=== PATIENT | female | born 1985 | race Two or more races ===

== ENCOUNTER 2022-09-03 13:45 | Emergency (ER) | payer OTHER ==
[~2022-09-03] VITALS: Ht 154.9 cm; Wt 79.5 kg
[2022-09-03] MEDS ORDERED: ONDANSETRON ODT 4 MG TAB PO ONE (14:15)
[2022-09-03] MEDS ORDERED: MAALOX PLUS or MAALOX 30 ML PO ONE (14:15)
[2022-09-03 14:26] LABS: Urine Bacteria NONE SEEN /hpf (None Seen); Urine Blood Negative /uL (Negative); Urine Mucus FEW (None Seen); Urine WBC 1 /hpf (0 - 5)
[2022-09-03] MEDS ORDERED: OMEP-335 PO (16:56)
[2022-09-03] MEDS ORDERED: ONDA-144 PO (16:56)
[2022-09-03 17:21] VITALS: BP 103/51
== END 2022-09-03 17:39 | disposition home or self-care (01) ==
LOC: ER 13:45
DX: K21.9 Gastro-esophageal reflux disease without esophagitis (principal)
CPT/HCPCS: 81001; 81025; 86677; 99283; Q0162